=== PATIENT | male | born 1995 | race African-American/Black ===

== ENCOUNTER 2017-11-22 21:55 | Emergency (ER) | payer OTHER ==
[2017-11-22] MEDS: ONDANSETRON 4 MG ORAL DISINTEGRATING TAB (S0181) PO ×2 (22:17→23:15)
== END 2017-11-23 00:32 | disposition home or self-care (01) ==
LOC: M ED 11-23 00:32
DX: T62.91XA Toxic effect of unspecified noxious substance eaten as food, accidental (unintentional), initial encounter (principal); R11.10 Vomiting, unspecified; R19.7 Diarrhea, unspecified; F17.200 Nicotine dependence, unspecified, uncomplicated
CPT/HCPCS: 99283

== ENCOUNTER 2018-05-13 10:00 | Emergency (ER) | payer OTHER ==
[2018-05-13] MEDS: KETOROLAC TROMETHAMINE 10 MG TAB PO (10:34)
== END 2018-05-13 11:26 | disposition home or self-care (01) ==
LOC: M ED 10:00
DX: S80.01XA Contusion of right knee, initial encounter (principal); W21.89XA Striking against or struck by other sports equipment, initial encounter
CPT/HCPCS: 73564

== ENCOUNTER 2019-10-23 18:17 | Emergency (ER) | payer OTHER, SELFPAY ==
[~2019-10-23] VITALS: Ht 185.4 cm; Wt 76.8 kg
[~2019-10-23 18:17] MED LIST: KETO10TAB PO; ZOFR4TAB14 PO
[2019-10-23] MEDS ORDERED: CLINDAMYCIN 900 MG in IV 1 EA IV ONE (20:30)
[2019-10-23] MEDS ORDERED: ACETAMINOPHEN 325 MG TAB PO ONE (20:30)
[2019-10-23] MEDS ORDERED: KETOROLAC 30 MG/ML VIAL (J1885) IV ONE (20:30)
[2019-10-23] MEDS ORDERED: methylPREDNISolone INJ 125 MG/2 ML VIAL (J2930) IV ONE (20:30)
[2019-10-23 21:12] LABS: BASO % 0.4 % (0.0-1.0); EOS # 0.2 10^3/uL (0.0-0.5); EOS % 1.6 % (0.0-3.0); HEMATOCRIT 49.8 % (42.0-52.0); HEMOGLOBIN 15.4 g/dl (13.5-17.5); LYMPH # 2.8 10^3/uL (1.5-5.0); LYMPH % 26.6 % (24.0-44.0); MEAN CORPUSCULAR HEMOGLOBIN 26.8 pg (27.0-33.0); MEAN CORPUSCULAR HGB CONC 30.9 g/dl (32.0-36.5); MEAN CORPUSCULAR VOLUME 86.8 fl (80.0-96.0); MONO # 0.7 10^3/uL (0.0-0.8); MONO % 7.2 % (0.0-5.0); NEUTROPHILS # 6.6 10^3/uL (1.5-8.5); NEUTROPHILS % 63.9 % (36.0-66.0); PLATELET COUNT, AUTOMATED 296 10^3/uL (150-450); RED BLOOD COUNT 5.74 10^6/uL (4.30-6.10); WHITE BLOOD COUNT 10.3 10^3/uL (4.0-10.0)
[2019-10-23 21:27] LABS: BLOOD UREA NITROGEN 21 MG/DL (7-18); CALCIUM LEVEL 8.7 MG/DL (8.5-10.1); CARBON DIOXIDE LEVEL 32 MEQ/L (21-32); CHLORIDE LEVEL 106 MEQ/L (98-107); CREATININE FOR GFR 1.35 MG/DL (0.70-1.30); GLOMERULAR FILTRATION RATE > 60.0 (>60); GLUCOSE, FASTING 125 MG/DL (70-100); POTASSIUM SERUM 3.9 MEQ/L (3.5-5.1); SODIUM LEVEL 143 MEQ/L (136-145)
[2019-10-23] MEDS ORDERED: NS 1,000 ML IV ONE (22:30)
[2019-10-23] MEDS ORDERED: KETO10TAB PO (23:38)
[2019-10-23] MEDS ORDERED: CLEO300C2 PO (23:38)
[2019-10-24 00:02] VITALS: BP 131/68
== END 2019-10-24 00:03 | disposition home or self-care (01) ==
LOC: M ED 18:17
DX: K61.1 Rectal abscess (principal); F17.210 Nicotine dependence, cigarettes, uncomplicated
CPT/HCPCS: 36415; 80048; 85025; 96361; 96365; 96375; 99284; J1885; J2930